=== PATIENT | male | born 1965 | race Caucasian/White ===

== ENCOUNTER 2016-11-27 06:05 | Day surgery (SDC) | payer OTHER ==
[~2016-11-27] VITALS: Ht 170.2 cm; Wt 81.6 kg
[~2016-11-27 06:05] MED LIST: ADVANCED E PO; ALLOPURINOL100 MG PO; AMLODIPINE5 MG PO; AMOXICILLIN500 MG PO; ASPIRIN EC81 MG PO; AUGMENTIN875TAB OR; AUGMENTIN875TAB PO; BACTRIM DS1 TAB OR; CHANTIX1 MG PO; CHLORTHALID25 MG PO; COREG25 MG PO; COREG3.125 MG PO; DILANTIN100 MG PO; FERRAPLUS 90 PO; FLEXERIL PO; FOLIC ACID1 MG PO; GABAPENTIN300 MG PO; GLIPIZIDE5 MG PO; GLYBURIDE5 MG PO; HYDROCHLOROT25 MG PO; LASIX 20 MG TAB20 MG PO; LIPITOR20 M1 PO; LIPITOR80 MG PO; LISINOPRIL20 MG PO; LORCET HD 10-321 TAB; LORTAB 10 PO; LORTAB 5 OR; MELOXICAM7.5 MG PO; METOPROL TAR25 MG PO; MOBIC7.5 M1 PO; NAPROSYN500 MG PO; NITROGLYCER0.4 MG SL; NITROSTAT0.4 MG SL; PLAVIX75 MG PO; SIMVASTATIN10 MG PO; SPIRIVA IN; TRAMADOL HCL50 MG PO; ULTRAM50 M1 PO
[2016-11-27 08:15] VITALS: BP 114/59
== END 2016-11-27 08:59 | disposition home or self-care (01) | DRG 552 ==
LOC: ORM 06:05
PROVIDERS: ATTEND Anesthesiology Pain Medicine
PROC: 3E0U3BZ Introduction of Anesthetic Agent into Joints, Percutaneous Approach (ICD-10-PCS; principal; 2016-11-27)
DX: M46.1 Sacroiliitis, not elsewhere classified (principal); M54.5 Low back pain

== ENCOUNTER 2016-12-11 06:23 | Day surgery (SDC) | payer OTHER ==
[~2016-12-11] VITALS: Ht 170.2 cm; Wt 79.4 kg
[2016-12-11] MEDS ORDERED: MULTI VIT PO (06:45)
[2016-12-24] MEDS ORDERED: NORCO1 TA2 PO ×2 (08:20→08:21)
== END 2016-12-11 07:05 | disposition home or self-care (01) | DRG 552 ==
LOC: ORM 06:23
PROVIDERS: ATTEND Anesthesiology Pain Medicine
DX: M46.1 Sacroiliitis, not elsewhere classified (principal); M54.5 Low back pain; Z53.8 Procedure and treatment not carried out for other reasons

== ENCOUNTER 2017-05-01 15:06 | Emergency (ER) | payer OTHER ==
[~2017-05-01] VITALS: Ht 170.2 cm; Wt 80.0 kg
[~2017-05-01 15:06] MED LIST changes: +MULTI VIT PO; +NORCO1 TA2 PO
[2017-05-01 16:23] VITALS: BP 126/75
== END 2017-05-01 16:28 | disposition home or self-care (01) | DRG 87 ==
LOC: ED 15:06
DX: S06.9X0A Unspecified intracranial injury without loss of consciousness, initial encounter (principal); R20.2 Paresthesia of skin; W17.89XA Other fall from one level to another, initial encounter; Y93.89 Activity, other specified; Y92.007 Garden or yard of unspecified non-institutional (private) residence as the place of occurrence of the external cause; Z79.02 Long term (current) use of antithrombotics/antiplatelets

== ENCOUNTER 2017-05-26 06:19 | Day surgery (SDC) | payer OTHER ==
[~2017-05-26 06:19] MED LIST changes: +FUROSEMIDE40 MG PO; +HYDROCHLOROT12.5 MG PO
[2017-05-26 09:02] VITALS: BP 136/67
== END 2017-05-26 09:10 | disposition home or self-care (01) | DRG 951 ==
LOC: ENDO 06:19
PROVIDERS: ATTEND Surgery
PROC: 0DBL8ZX Excision of Transverse Colon, Via Natural or Artificial Opening Endoscopic, Diagnostic (ICD-10-PCS; principal; 2017-05-26)
DX: Z12.11 Encounter for screening for malignant neoplasm of colon (principal); D12.3 Benign neoplasm of transverse colon

== ENCOUNTER 2018-07-12 21:40 | Emergency (ER) | payer OTHER ==
[~2018-07-12] VITALS: Ht 170.2 cm; Wt 79.0 kg
[2018-07-13] MEDS ORDERED: PERCOCET 5/325M1 TAB PO (00:46)
[2018-07-13 01:10] VITALS: BP 148/79
== END 2018-07-13 01:32 | disposition home or self-care (01) ==
LOC: ED 21:40
DX: R22.41 Localized swelling, mass and lump, right lower limb (principal)

== ENCOUNTER 2019-01-24 15:54 | Emergency (ER) | payer OTHER ==
[~2019-01-24] VITALS: Ht 170.2 cm; Wt 70.5 kg
[~2019-01-24 15:54] MED LIST changes: +PERCOCET 5/325M1 TAB PO
[2019-01-24 17:08] LABS: URINE BILIRUBIN - DIPSTICK NEGATIVE (NEGATIVE); URINE BLOOD DIPSTICK MODERATE (NEGATIVE); URINE GLUCOSE - DIPSTICK NEGATIVE (NEGATIVE); URINE KETONE NEGATIVE (NEGATIVE); URINE LEUK ESTERASE TRACE (NEGATIVE); URINE PH 6.5 (4.5-8.0); URINE PROTEIN - DIPSTICK 30 mg/dL (NEG-TRACE); URINE SPECIFIC GRAVITY 1.015; URINE UROBILINOGEN - DIPSTICK 0.2 E.U./dL (0.2)
[2019-01-24 17:09] LABS: URINE COLOR RED; URINE NITRITE - DIPSTICK POSITIVE (Negative)
[2019-01-24 17:11] LABS: URINE BACTERIA FEW hpf; URINE RBC TNTC RBC/hpf (0-5); URINE SQUAMOUS EPITHELIAL CELL FEW EPI/hpf (0-FEW)
[2019-01-24] MEDS ORDERED: KEFLEX500 M1 PO (17:38)
[2019-01-24 18:05] VITALS: BP 154/77
[2019-01-24] MEDS ORDERED: PYRIDIUM200 MG PO (18:05)
== END 2019-01-24 18:07 | disposition home or self-care (01) ==
LOC: ED 15:54
PROVIDERS: Emergency Medicine
DX: N39.0 Urinary tract infection, site not specified (principal); Z46.6 Encounter for fitting and adjustment of urinary device

== ENCOUNTER 2019-08-09 08:46 | Emergency (ER) | payer OTHER ==
[~2019-08-09 08:46] MED LIST changes: +KEFLEX500 M1 PO; +PYRIDIUM200 MG PO
[2019-08-09] MEDS ORDERED: CRESTOR5 MG PO (09:14)
[2019-08-09 09:32] LABS: HEMATOCRIT 40.3 % (39.0-50.0); HEMOGLOBIN 13.3 g/dl (14.0-18.0); IMMATURE GRANULOCYTES 0.3 % (0.0-5.0); MEAN CORPUSCULAR HGB 31.4 pG CALC (26.0-32.0); NEUT# 4.26 thou/uL (1.82-7.42); RED BLOOD COUNT 4.24 mill/uL (4.70-6.10); RED CELL DISTRI WIDTH 14.6 % (11.5-15.5)
[2019-08-09 09:52] LABS: ALBUMIN 4.4 g/dL (3.2-5.0); ALKALINE PHOSPHATASE 103 u/l (38-126); ANION GAP 18 (6-22 (CALC)); BILIRUBIN, TOTAL 0.4 mg/dL (0.0-1.4); BUN 34 mg/dL (9-20); CARBON DIOXIDE 21 mmol/l (22-30); CHLORIDE 103 mmol/l (95-108); POTASSIUM 4.7 mmol/l (3.5-5.1); SODIUM 137 mmol/l (137-146); TOTAL PROTEIN 7.9 g/dL (6.3-8.2)
[2019-08-09 09:54] LABS: BUN/CREATININE RATIO 23 (12-20 (CALC)); CREATININE 1.5 mg/dL (0.7-1.3); GFR 49 ML/MIN (>=60 (CALC)); GFR FOR AFR.AMER. 59 ML/MIN (>=60 (CALC)); SGOT/AST 40 u/l (17-59)
[2019-08-09] MEDS ORDERED: ALLOPURINOL100 MG PO (10:21)
[2019-08-09 12:15] VITALS: BP 137/61
== END 2019-08-09 12:19 | disposition left against medical advice (07) ==
LOC: ED 08:46
PROVIDERS: Family Medicine
DX: R00.1 Bradycardia, unspecified (principal); E11.9 Type 2 diabetes mellitus without complications; I10 Essential (primary) hypertension; Z79.84 Long term (current) use of oral hypoglycemic drugs; Z91.19 Patient's noncompliance with other medical treatment and regimen

== ENCOUNTER 2020-01-19 11:01 | Emergency (ER) | payer OTHER ==
[~2020-01-19] VITALS: Ht 170.2 cm; Wt 80.0 kg
[~2020-01-19 11:01] MED LIST changes: +CRESTOR5 MG PO
[2020-01-19] MEDS ORDERED: CEPHALEXIN500 M1 PO (12:26)
[2020-01-19] MEDS ORDERED: BACTRIM DS1 TAB PO (12:26)
[2020-01-19 12:44] VITALS: BP 137/56
== END 2020-01-19 12:40 | disposition left against medical advice (07) ==
LOC: ED 11:01
DX: L03.032 Cellulitis of left toe (principal); E11.9 Type 2 diabetes mellitus without complications; I10 Essential (primary) hypertension; F17.200 Nicotine dependence, unspecified, uncomplicated; B95.62 Methicillin resistant Staphylococcus aureus infection as the cause of diseases classified elsewhere; Z95.1 Presence of aortocoronary bypass graft; Z91.19 Patient's noncompliance with other medical treatment and regimen; Z20.828 Contact with and (suspected) exposure to other viral communicable diseases

== ENCOUNTER 2020-01-20 20:03 | Inpatient (IN) | payer OTHER ==
[~2020-01-20] VITALS: Ht 170.2 cm; Wt 80.0 kg
[~2020-01-20 20:03] MED LIST changes: +BACTRIM DS1 TAB PO; +CEPHALEXIN500 M1 PO
--- NOTE | 2020-01-20 20:10 | NUR ---
PT AMBULATES TO ROOM 12 W/STEADY GAIT.
--- NOTE | 2020-01-20 20:45 | NUR ---
IV STARTED. LABS DRAWN. LAB HERE TO COLLECT 2ND SET OF CULTURES.
--- NOTE | 2020-01-20 21:00 | NUR ---
PT TO CAR TO GET OVERNIGHT BAG. ESCORTED BY SECURITY.
[2020-01-20 21:09] LABS: HEMATOCRIT 32.9 % (39.0-50.0); HEMOGLOBIN 10.8 g/dl (14.0-18.0); IMMATURE GRANULOCYTES 0.5 % (0.0-5.0); MEAN CELL VOLUME 94.8 fL CALC (80.0-100.0); MEAN CORPUSCULAR HGB 31.1 pG CALC (26.0-32.0); MEAN CORPUSCULAR HGB CONC 32.8 g/dL CAL (32.0-36.0); NEUT# 6.01 thou/uL (1.82-7.42); RED BLOOD COUNT 3.47 mill/uL (4.70-6.10); RED CELL DISTRI WIDTH 14.5 % (11.5-15.5)
[2020-01-20 21:16] LABS: BILIRUBIN, TOTAL 0.4 mg/dL (0.0-1.4); CREATININE 2.1 mg/dL (0.7-1.3); POTASSIUM 4.5 mmol/l (3.5-5.1); TOTAL PROTEIN 7.4 g/dL (6.3-8.2)
--- NOTE | 2020-01-20 21:49 | NUR ---
PT RETURNED FROM U/S VIA W/C. U/S REPORTED NEGATIVE.
--- NOTE | 2020-01-20 21:55 | NUR ---
[facility] CALLS FOR BED ASSIGNMENT, ROOM 262 ASSIGNED FOR PT. ROOM 262 PREPARED BY Tan ARRIAGA CNA TO RECEIVE PT.
--- NOTE | 2020-01-20 23:05 | NUR ---
TELEPHONE REPORT RECEIVED FROM Fox ROMANO RN IN ED.
--- NOTE | 2020-01-20 23:06 | NUR ---
REPORT TO SUDEEP/MED-SURG.
--- NOTE | 2020-01-20 23:15 | NUR ---
TELEPHONE REPORT RECEIVED FROM Fox ROMANO RN IN ED.
--- NOTE | 2020-01-20 23:15 | NUR ---
PT TO FLOOR VIA W/C WITH IV INFUSING. MERRIMEN WITH PT. DRESSING REMAINS DRY AND INTACT. ARRANGED FOR WOUND CARE CONSULT. PT IS GOING TO CALL WOUND CARE IN THE AM TO ADVISE THAT HE IS IN HOSPITAL. VSS. PT AMBULATORY TO BED UPON ARRIVAL.
--- NOTE | 2020-01-20 23:15 | NUR ---
PT ARRIVES TO UNIT AT 2315 VIA WC ACCOMPANIED BY oFx ROMANO RN. PT AMBULATORY TO BED. ORIENTED TO UNIT AND ROOM. CALL VALDIVIA WITHIN REACH, AGREES TO CALL PRN.
--- NOTE | 2020-01-20 23:25 | NUR ---
RX SUGGEST MERREM 1GM IV Q12H FOR RENAL DOSING. ORDER CLARIFIED W/ Hazel VARGAS APRN.
--- NOTE | 2020-01-21 00:15 | NUR ---
ADMISSION AND PHYSICAL ASSESMENT COMPLETE. ERYTHEMA TO LLE OUTLINED WITH MARKER. DRESSING TO L GREAT TOE C/D/I. LEFT IN PLACE PENDING WOUND CARE DOCTORS CONSULTATION PER PTS WISHES. PRN ANALGESIC ADMINISTERED FOR PAIN. SEE E-MAR. PLAN OF CARE REVIEWED. PT VERBALIZES UNDERSTANDING AND DENIES QUESTIONS. PT DENIES FURTHER NEEDS AT THIS TIME. CALL VALDIVIA WITHIN REACH. AGREES TO CALL PRN.
[2020-01-21 03:57] VITALS: BP 113/58
--- NOTE | 2020-01-21 05:30 | NUR ---
REPORTED 0000 AND 0400 TO Hazel VARGAS APRN. NIBP @ 0000 WAS 85/67mm/Hg AND @ 0400 102/72mm/Hg. PT ASYMPTOMATIC FOR HYPOTENSION. REQUESTING CLARIFICATION ON WETHER OR NOT TO HOLD AM LASIX DOSE. PER Hazel VARGAS APRN ADMINISTER LASIX 40MG IV PREVIOUSLY ORDERED. SEE E-MAR FOR ADMINISTRATION.
[2020-01-21 05:40] LABS: HEMATOCRIT 31.6 % (39.0-50.0); HEMOGLOBIN 10.2 g/dl (14.0-18.0); IMMATURE GRANULOCYTES 0.4 % (0.0-5.0); MEAN CELL VOLUME 95.8 fL CALC (80.0-100.0); MEAN CORPUSCULAR HGB 30.9 pG CALC (26.0-32.0); MEAN CORPUSCULAR HGB CONC 32.3 g/dL CAL (32.0-36.0); NEUT# 4.15 thou/uL (1.82-7.42); RED BLOOD COUNT 3.3 mill/uL (4.70-6.10); RED CELL DISTRI WIDTH 14.4 % (11.5-15.5)
--- NOTE | 2020-01-21 05:53 | NUR ---
HEMODYNAMICS STABLE. PHYSICAL ASSESMENT REMAINS WITHIN BASELINE WITH NO SIGNIFICANT CHANGES. PT RESTING IN BED COMFORTABLY. DENIES ANY FURTHER NEEDS AT THIS TIME. CALL VALDIVIA WITHIN REACH, AGREES TO CALL PRN.
[2020-01-21 05:59] LABS: ALBUMIN 3.4 g/dL (3.2-5.0); BILIRUBIN, TOTAL 0.4 mg/dL (0.0-1.4); CREATININE 1.9 mg/dL (0.7-1.3); POTASSIUM 4.3 mmol/l (3.5-5.1); TOTAL PROTEIN 6.5 g/dL (6.3-8.2)
[2020-01-21 07:50] VITALS: BP 146/46
--- NOTE | 2020-01-21 07:50 | NUR ---
RECIEVED REPORT FROM ANATOLIY SHEETS. PT RESTING IN SEMI FOWLERS POSITION UPON ENTERING ROOM. INTRODUCED SELF TO PT AND DISCUSSED POC. PT IS A/O X3 AND ABLE TO VOICE NEEDS. ASSESSMENT AND VITALS OBTAINED. RESPIRATIONS ARE EVEN AND UNLABORE DON ROOM AIR. HEART RHYTHM IS NORMAL. BOWEL SOUNDS ARE ACTIVE IN ALL QUADRANTS, LAST REPORTED BM 01/21/2020. RADIAL PULSES STRONG. PEDAL PULSES WEAK. #20G IN RAC RUNNING WITH IV PER ORDER, SITE APPEARS HEALTHY AND PATENT. PT COMPLAINS OF 8/10 PAIN IN LEFT FOOT. LORTAB TO BE ADMINISTERED. DRESSING ON LEFT PINK TOE IS CDI AT THIS TIME. REDDNESS NOTED ON LEFT CALF, OUTLINE PRESENT. LIMB ELEVATED ON PILLOW. PT DENIES ANY OTHER PAIN OR DISCOMFORTS AT THIS TIME. PT COMPLAINS OF BEING COLD, HEATED BLANKET PROVIDED. PT EDUACTED ON NEED OF URINE SPECIMEN, PT VERBALIZED UNDERSTANDING. ALL SAFETY PRECAUTIONS ARE IN PLACE WITH CALL LIGHT IN REACH. WILL CONTINUE TO MONITOR
--- NOTE | 2020-01-21 08:20 | NUR ---
DR PAREKH AT BEDSIDE DISCUSSING POC
--- NOTE | 2020-01-21 10:02 | NUR ---
DR ELLIS AT BEDSIDE DISCUSSING POC WITH PT
--- NOTE | 2020-01-21 11:34 | NUR ---
S: SAUNDRA MONTEJO is a 54 M who presents with Cellulitis He has a history of Diabetes, CAD, Hypertension, and Hyperlipidemia. All medications in patient's chart were reviewed. O: VS: BP 146/46 mmHg, P 66 bpm, RR 18 breath per minute, T 96.3F W 80.0 kg, HT 67 in, Scr= 1.9 mg/dL, CrCl= 44 ml/min A: Blood culture is pending. 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 P: Patient is on Amoxicillin 875mg BID PO. Vancomycin ordered for pharmacy to dose. Start Vancomycin 1250mg IV Q24H. Vancomycin trough is drawn before the 4th dose on 01/24/2020 at 0830. Vancomycin goal trough is between 10-15 mcg/ml. Pharmacy will follow and or advise on antibiotics use as needed.
--- NOTE | 2020-01-21 12:37 | NUR ---
REASSESSMENT OF PAIN RESUTLING IN 06/17. RESPIRATIONS REMAINS EVEN AND UNLABORED WITH NO DISTRESS NOTED. DRESSING REMAINS CDI ON LEFT PINK TOE. PT DENIES ANY ADDITIONAL NEEDS AT THSI TIME. ALL SAFETY PRECAUTIONS ARE IN PLACE WIHT CALL LIGHT IN REACH. WILL CONTINUE TO MONITOR
[2020-01-21] MEDS ORDERED: ZYLOPRIM100 MG PO (13:34)
[2020-01-21] MEDS ORDERED: PROSCAR5 MG PO (13:35)
[2020-01-21] MEDS ORDERED: CRESTOR10 MG PO (13:36)
[2020-01-21] MEDS ORDERED: LOPRESSOR25 M1 PO (13:36)
[2020-01-21] MEDS ORDERED: BENICAR20 MG PO (13:37)
[2020-01-21] MEDS ORDERED: HYDROCODONE/ACE1 TAB PO (13:37)
[2020-01-21] MEDS ORDERED: HYDROCHLOROT12.5 M1 PO (13:39)
[2020-01-21] MEDS ORDERED: NEURONTIN300 MG PO (13:40)
[2020-01-21] MEDS ORDERED: GLIPIZIDE5 M2 PO (13:40)
[2020-01-21] MEDS ORDERED: UROCIT-K 101080 MG PO (13:42)
[2020-01-21] MEDS ORDERED: PROAIR HFA108 MCG/AC PO (13:44)
[2020-01-21] MEDS ORDERED: SPIRIVA HANDIH18 MCG PO (13:45)
[2020-01-21] MEDS ORDERED: PLAVIX75 MG PO (13:48)
--- NOTE | 2020-01-21 15:59 | NUR ---
WOUND CARE AT BEDSIDE
[2020-01-21 16:01] VITALS: BP 110/58
--- NOTE | 2020-01-21 16:14 | NUR ---
WRITTER IN ROOM WITH WOUND CARE. PT EXPRESSES FEELINGS ON" HOSPITAL NOT DOING ANYTHING FOR HIM.", STATING " IDONT UNDERSTAND WHY IM STILL IN THIS HOSPITAL BED WHEN I CAN BE JUST COME EVERY DAY TO GET THESE ANTIBIOTICS." WRIITER EXPLAINED THAT [facility] CONSULT AND WOUND CARE CONSULT WAS NEEDED. PT BECAME AGGITATED. WRITTER EXPLAINED THAT PT WOULD BE ABLE SPEAK TO MD ABOUTING DOING OUTPATIENT IN THE MORNING. PT SIGNED AND SHOOK HEAD. WRITTER ASKED IF ANYTHING WAS NEEDED AT THIS TIME. PT DENIES. ALL SAFTEY PRECAUTIONS ARE IN PLACE WITH CALL LIGHT IN REACH. WILL CONTINUE TO MONITOR.
[2020-01-21 19:30] VITALS: BP 160/80
--- NOTE | 2020-01-21 20:01 | NUR ---
PHYSICAL ASSESMENT COMPLETE. PT CURRENTLY DENIES PAIN OR DISCOMFORT. SCHEDULED MEDICATIONS AND PRN MEDICATION ADMINISTERED, SEE E-MAR. PT DENIES ANY NEEDS AT THIS TIME. PLAN OF CARE REVIEWED, PT DENIES QUESTIONS, VERBALIZES UNDERSTANDING. ITEMS WITHIN REACH, BED LOCKED IN LOW POSITION W/ BEDRAILS UP X2. CALL VALDIVIA WITHIN REACH, AGREES TO CALL PRN.
[2020-01-21 23:31] LABS: URINE BILIRUBIN - DIPSTICK NEGATIVE (NEGATIVE); URINE BLOOD DIPSTICK MODERATE (NEGATIVE); URINE COLOR YELLOW; URINE GLUCOSE - DIPSTICK NEGATIVE (NEGATIVE); URINE KETONE NEGATIVE (NEGATIVE); URINE NITRITE - DIPSTICK NEGATIVE (Negative); URINE PROTEIN - DIPSTICK NEGATIVE (NEG-TRACE); URINE UROBILINOGEN - DIPSTICK 0.2 E.U./dL (0.2)
[2020-01-21 23:52] LABS: URINE BACTERIA FEW hpf; URINE EPITHELIAL CELLS FEW EPI/hpf (0-FEW); URINE LEUK ESTERASE NEGATIVE (NEGATIVE)
--- NOTE | 2020-01-22 00:15 | NUR ---
PT LAYING IN BED WITH EYES CLOSED, APPEARS TO BE SLEEPING, APPEARS COMFORTABLE AND IN NO DISTRESS. RESPIRATIONS REGULAR AND UNLABORED. ITEMS REMAIN WITHIN REACH, CALL VALDIVIA REMAINS WITHIN REACH. BED REMAINS LOCKED AND IN LOW POSITION WITH BEDRAILS UP X2. WILL CONTINUE TO MONITOR.
[2020-01-22 04:00] VITALS: BP 106/65
--- NOTE | 2020-01-22 04:01 | NUR ---
PT RESTING IN BED, NO SIGNS OF DISTRESS NOTED, RESP EVEN AND UNLABORED. PT VOICES NO NEEDS OR COMPLAINTS AT THIS TIME. CALL LIGHT IN REACH, WILL CONTINUE TO MONITOR.
[2020-01-22 04:54] LABS: HEMATOCRIT 32.3 % (39.0-50.0); HEMOGLOBIN 10.5 g/dl (14.0-18.0); MEAN CELL VOLUME 93.9 fL CALC (80.0-100.0); MEAN CORPUSCULAR HGB 30.5 pG CALC (26.0-32.0); MEAN CORPUSCULAR HGB CONC 32.5 g/dL CAL (32.0-36.0); RED BLOOD COUNT 3.44 mill/uL (4.70-6.10); RED CELL DISTRI WIDTH 14.3 % (11.5-15.5)
[2020-01-22 05:06] LABS: ALBUMIN 3.3 g/dL (3.2-5.0); ALKALINE PHOSPHATASE 97 u/l (38-126); ANION GAP 9 (6-22 (CALC)); BILIRUBIN, TOTAL 0.4 mg/dL (0.0-1.4); BUN 32 mg/dL (9-20); BUN/CREATININE RATIO 24 (12-20 (CALC)); CARBON DIOXIDE 23 mmol/l (22-30); CHLORIDE 109 mmol/l (95-108); CREATININE 1.4 mg/dL (0.7-1.3); GFR 52 ML/MIN (>=60 (CALC)); GFR FOR AFR.AMER. > 60 ML/MIN (>=60 (CALC)); SGOT/AST 30 u/l (17-59); SODIUM 136 mmol/l (137-146); TOTAL PROTEIN 6.4 g/dL (6.3-8.2)
[2020-01-22 07:29] VITALS: BP 117/67
--- NOTE | 2020-01-22 07:29 | NUR ---
RECIEVED REPORT FROM ANATOLIY MOSLEY. PT RESTING IN SEMI FOWLERS POSITION UPON ENTERING ROOM. INTRODUCED SELF TO PT AND DISCUSSED POC. PT IS A/O X3. ASSESSMENT AND VITALS COMPLETED. RESPIRATIONS ARE EVEN AND UNLABORED ON ROOM AIR. HEART RHYTHM IS NORMAL. BOWEL SOUNDS AREA ACTIVE IN ALL QUADRANATS, LAST REPORETD BM 01/21/2020. RADIAL PULSES STRONG. PEDAL PULSES WEAK. DRESSING TO LEFT PINKY TOE CDI AT THIS TIME. PT COMPLAINS OF 3/10 PAIN IN TOE. DRESSING REMAINS CDI AT THIS TIME.PT DENIES ANY ADDITIONAL NEEDS AT THIS TIME. ALL FSAETY PRECAUTIONS ARE IN PLACE WIHT CALL LIGHT IN [facility]. WILL CONTINUE TO MONITOR
--- NOTE | 2020-01-22 10:02 | NUR ---
DR PAREKH AT BEDSIDE DISSCUSSING POC
--- NOTE | 2020-01-22 10:10 | NUR ---
US OF LOWER EXTERMITY ORDERED STAT. RADIOLOGY NOTFIED.
--- NOTE | 2020-01-22 12:38 | NUR ---
PT SLEEPING IN LOW FOWLERS POSITION. RESPIRATIONS ARE EVEN AND UNLABORED ON ROOM AIR. PT DENIES ANY NEEDS AT THIS TIME. WAITING FOR US. ALL SAFETY PRECAUTIONS ARE IN PLACE WITH CALL LIGHT IN REACH. WILL CONTINUE TO MONITOR
--- NOTE | 2020-01-22 13:00 | NUR ---
CALLED TO CHECK STATUS OF US. WRITTER INFORMS THAT [facility] WAS CALLED AND WILL BE CALLED AGAIN.
--- NOTE | 2020-01-22 13:26 | NUR ---
PT TRANSPORTED TO US VIA WHEELCHAIR IN STABLE CONDITION ACCOMPAINED BY MICHELLE
--- NOTE | 2020-01-22 15:34 | NUR ---
NOTIFIED OF US RESULTS. PT TO BE TRANSFER TO [facility]
--- NOTE | 2020-01-22 16:00 | NUR ---
PT RESTING IN SEMI FOWLERS POSITION UPON ENTERING ROOM. RESPIRATIONS ARE EVEN AND UNLABORED WITH NO SIGNS OF DISTRESS NOTED. PT EDUCATED ON TRANSFER. PT VERBALIZED UNDERSTANDING. PT DENIES ANY ADDITONAL NEEDS AT THIS TIME. ALL SAFETY PRECAUTIONS REMAIN IN PLACE. WILL CONTINUE TO MONITOR
[2020-01-22 16:06] VITALS: BP 144/79
--- NOTE | 2020-01-22 16:15 | NUR ---
BIOFIRE SWAB OBTAINED BY ANATOLIY LEE.
--- NOTE | 2020-01-22 16:29 | NUR ---
PT EDUCATED ON STATUS OF TRANSFER WITH CM AT BEDSIDE.PT STATED " YEAH I JUST FOUND OUT." [facility] ATTEMPTED TO REORIENT PATIENT ON DISCUSSION THIS MORNING WITH DR PAREKH. NO RESPONSE FROM PT. [facility] INFORMED PT THAT TRANSFER IS PENDING PER BIOFIRE SWAB, ONCE RESULTS CAME BACK TRANSPORTATION WOULD BE PROVIDED . PT STATED"I KNEW SOMETHING WAS UP WHEN YOU DID IT." [facility] ASKED PT TO CALIFY WHAT HE MEANT DUE TO COVID TEST REQURIED FROM [facility] FOR TRANSFER AND CM TO WORK ON TRANSPORTATION AND ROOM WHILE WAITIING FOR BIOFIRE. PT STATED " JUST UNHOOK ME, IM GOING HOME." [facility] EDUCATED PT ON MEDICAL CONDITION. DR PAREKH CALLED TO PT ROOM. PT REFUSED TO SPEAK TO MD. PT CONTINUE TO WALK OUT. IV REMOVED BY ALEXA SOLIS. PT REFUSED TO SIGNS AMA FORMS. DR PAREKH NOTIFIED.
--- NOTE | 2020-01-22 16:42 | NUR ---
PT WALKING DOWN HALLWAY DRESSED HIM HOME CLOTHES AND ALL BELONGINGS IN HAND; PT ADAMENT THAT HE IS LEAVING AND NOT GOING TO [facility]; ATTEMPTED TO INFORM PT OF RISKS OF LEAVING AND PT IS AGITATED AND DISINTRESTED IN EXPLANATIONS. CONTINUES TO WALK TOWARDS ELEVATORS; INSISTED THAT PT LET STAFF REMOVE IV; IV REMOVED IN HALLWAY. ALSO REFUSED TO SIGN AMA PAPER.
== END 2020-01-22 16:29 | disposition left against medical advice (07) | DRG 638 ==
LOC: ED 20:03 → ED-I 21:41 → ED 21:53 → MS2 21:54
PROVIDERS: Emergency Medicine; Nurse Practitioner Family; ADMIT Internal Medicine; ATTEND Internal Medicine
DX: E11.69 Type 2 diabetes mellitus with other specified complication (principal); M86.8X7 Other osteomyelitis, ankle and foot; L03.116 Cellulitis of left lower limb; N17.9 Acute kidney failure, unspecified; E11.621 Type 2 diabetes mellitus with foot ulcer; L97.529 Non-pressure chronic ulcer of other part of left foot with unspecified severity; E11.51 Type 2 diabetes mellitus with diabetic peripheral angiopathy without gangrene; I70.245 Atherosclerosis of native arteries of left leg with ulceration of other part of foot; I70.201 Unspecified atherosclerosis of native arteries of extremities, right leg; I12.9 Hypertensive chronic kidney disease with stage 1 through stage 4 chronic kidney disease, or unspecified chronic kidney disease; E11.22 Type 2 diabetes mellitus with diabetic chronic kidney disease; I72.4 Aneurysm of artery of lower extremity; E11.65 Type 2 diabetes mellitus with hyperglycemia; N18.9 Chronic kidney disease, unspecified; S92.512A Displaced fracture of proximal phalanx of left lesser toe(s), initial encounter for closed fracture; X58.XXXA Exposure to other specified factors, initial encounter; F17.210 Nicotine dependence, cigarettes, uncomplicated; I25.10 Atherosclerotic heart disease of native coronary artery without angina pectoris; F41.9 Anxiety disorder, unspecified; E78.5 Hyperlipidemia, unspecified; B95.62 Methicillin resistant Staphylococcus aureus infection as the cause of diseases classified elsewhere; Z79.84 Long term (current) use of oral hypoglycemic drugs; Z95.1 Presence of aortocoronary bypass graft; Z20.828 Contact with and (suspected) exposure to other viral communicable diseases
CPT/HCPCS: J0692; J3370

== ENCOUNTER 2020-06-26 | Emergency (ER) | payer OTHER ==
[~2020-06-26] MED LIST changes: +BENICAR20 MG PO; +CRESTOR10 MG PO; +GLIPIZIDE5 M2 PO; +HYDROCHLOROT12.5 M1 PO; +HYDROCODONE/ACE1 TAB PO; +LOPRESSOR25 M1 PO; +NEURONTIN300 MG PO; +PROAIR HFA108 MCG/AC PO; +PROSCAR5 MG PO; +SPIRIVA HANDIH18 MCG PO; +UROCIT-K 101080 MG PO; +ZYLOPRIM100 MG PO
[2020-06-26] MEDS ORDERED: KEFLEX500 M1 PO (17:59)
== END 2020-06-26 18:42 | disposition home or self-care (01) ==
DX: L03.115 Cellulitis of right lower limb (principal); I10 Essential (primary) hypertension; E11.9 Type 2 diabetes mellitus without complications; F17.200 Nicotine dependence, unspecified, uncomplicated; Z79.84 Long term (current) use of oral hypoglycemic drugs; Z95.1 Presence of aortocoronary bypass graft

== ENCOUNTER 2020-06-30 | Emergency (ER) | payer OTHER ==
[2020-06-30 12:46] LABS: HEMOGLOBIN 11.8 g/dl (14.0-18.0); IMMATURE GRANULOCYTES 0.2 % (0.0-5.0); MEAN CELL VOLUME 95.5 fL CALC (80.0-100.0); MEAN CORPUSCULAR HGB 31.3 pG CALC (26.0-32.0); MEAN CORPUSCULAR HGB CONC 32.8 g/dL CAL (32.0-36.0); NEUT# 2.9 thou/uL (1.82-7.42); RED BLOOD COUNT 3.77 mill/uL (4.70-6.10); RED CELL DISTRI WIDTH 14.4 % (11.5-15.5)
[2020-06-30 13:08] LABS: ACT PARTIAL THROMBO TIME 24.5 SECONDS (20.0-32.5); PROTHROMBIN TIME 10.3 SECONDS (9.0-12.5)
[2020-06-30 13:31] LABS: ALBUMIN 4.2 g/dL (3.2-5.0); ALKALINE PHOSPHATASE 83 u/l (38-126); ANION GAP 11 (6-22 (CALC)); BILIRUBIN, TOTAL 0.5 mg/dL (0.0-1.4); BUN 31 mg/dL (9-20); BUN/CREATININE RATIO 22 (12-20 (CALC)); CARBON DIOXIDE 25 mmol/l (22-30); CHLORIDE 101 mmol/l (95-108); CREATININE 1.4 mg/dL (0.7-1.3); GFR 52 ML/MIN (>=60 (CALC)); GFR FOR AFR.AMER. > 60 ML/MIN (>=60 (CALC)); POTASSIUM 4.4 mmol/l (3.5-5.1); SGOT/AST 43 u/l (17-59); SODIUM 132 mmol/l (137-146); TOTAL PROTEIN 7.4 g/dL (6.3-8.2)
[2020-06-30] MEDS ORDERED: CLINDAMYCIN300 M1 PO (13:52)
== END 2020-06-30 14:18 | disposition home or self-care (01) ==
DX: L03.115 Cellulitis of right lower limb (principal); S80.811A Abrasion, right lower leg, initial encounter; L55.9 Sunburn, unspecified; E11.9 Type 2 diabetes mellitus without complications; I10 Essential (primary) hypertension; I25.10 Atherosclerotic heart disease of native coronary artery without angina pectoris; F17.210 Nicotine dependence, cigarettes, uncomplicated; X58.XXXA Exposure to other specified factors, initial encounter; Z95.1 Presence of aortocoronary bypass graft; Z79.84 Long term (current) use of oral hypoglycemic drugs

== ENCOUNTER 2020-09-10 15:13 | Emergency (ER) | payer OTHER ==
[~2020-09-10] VITALS: Ht 170.2 cm; Wt 84.1 kg
[~2020-09-10 15:13] MED LIST changes: +CLINDAMYCIN300 M1 PO
[2020-09-10 15:38] LABS: HEMOGLOBIN 13.9 g/dl (14.0-18.0); IMMATURE GRANULOCYTES 0.1 % (0.0-5.0); MEAN CELL VOLUME 91.3 fL CALC (80.0-100.0); MEAN CORPUSCULAR HGB 31.7 pG CALC (26.0-32.0); MEAN CORPUSCULAR HGB CONC 34.8 g/dL CAL (32.0-36.0); NEUT# 5.42 thou/uL (1.82-7.42); RED BLOOD COUNT 4.38 mill/uL (4.70-6.10); RED CELL DISTRI WIDTH 13.8 % (11.5-15.5)
[2020-09-10 15:54] LABS: ALBUMIN 4.8 g/dL (3.2-5.0); BILIRUBIN, TOTAL 0.5 mg/dL (0.0-1.4); CREATININE 2.3 mg/dL (0.7-1.3)
[2020-09-10 15:57] LABS: POTASSIUM 2.7 mmol/l (3.5-5.1)
[2020-09-10 16:03] LABS: ACT PARTIAL THROMBO TIME 26.5 SECONDS (20.0-32.5); INTERNATIONAL NORMALIZED RATIO 1.1 RATIO (0.7-1.3); PROTHROMBIN TIME 11.2 SECONDS (9.0-12.5)
[2020-09-10] MEDS ORDERED: XARELTO2.5 MG (17:48)
[2020-09-10 17:54] VITALS: BP 123/64
== END 2020-09-10 18:05 | disposition left against medical advice (07) ==
LOC: ED 15:13
DX: R07.9 Chest pain, unspecified (principal); E87.6 Hypokalemia; I12.9 Hypertensive chronic kidney disease with stage 1 through stage 4 chronic kidney disease, or unspecified chronic kidney disease; E11.22 Type 2 diabetes mellitus with diabetic chronic kidney disease; N18.9 Chronic kidney disease, unspecified; I25.10 Atherosclerotic heart disease of native coronary artery without angina pectoris; I25.2 Old myocardial infarction; F17.200 Nicotine dependence, unspecified, uncomplicated; Z95.1 Presence of aortocoronary bypass graft; Z95.5 Presence of coronary angioplasty implant and graft; Z79.84 Long term (current) use of oral hypoglycemic drugs; Z91.19 Patient's noncompliance with other medical treatment and regimen
CPT/HCPCS: S0164

== ENCOUNTER 2021-11-15 07:12 | Day surgery (SDC) | payer OTHER ==
[~2021-11-15] VITALS: Ht 170.2 cm; Wt 79.4 kg
[~2021-11-15 07:12] MED LIST changes: +LEVOTHYROXIN75 MC1 PO; +XARELTO2.5 MG
[2021-11-15 08:58] VITALS: BP 152/64
== END 2021-11-15 09:38 | disposition home or self-care (01) ==
LOC: ENDO 07:12 → ORM 08:00 → ENDO 09:38
PROVIDERS: ATTEND Surgery
DX: D12.3 Benign neoplasm of transverse colon (principal); K63.5 Polyp of colon; K64.8 Other hemorrhoids; I10 Essential (primary) hypertension; E11.9 Type 2 diabetes mellitus without complications; F17.210 Nicotine dependence, cigarettes, uncomplicated; Z95.1 Presence of aortocoronary bypass graft; Z79.84 Long term (current) use of oral hypoglycemic drugs; Z86.010 Personal history of colon polyps

== ENCOUNTER 2023-11-02 11:18 | Emergency (ER) | payer OTHER ==
[2023-11-02] VITALS (13 sets, daily range): BP systolic 117–156; BP diastolic 45–127
[~2023-11-02] VITALS: Ht 157.5 cm; Wt 80.0 kg
[~2023-11-02 11:18] MED LIST changes: +TOPROL XL25 M1 PO
[2023-11-02] MEDS ORDERED: VANCOMYCIN HCL 1 GM in SODIUM CHLORIDE 0.9% 250 ML IV ONE (11:50)
[2023-11-02] MEDS ORDERED: PIPERACILLIN Sodium-Tazobactam 3.375 GM in SODIUM CHLORIDE 0.9% 100 ML IV ONE (11:50)
[2023-11-02 12:25] LABS: BASO% 0.1 % (0-3); EOS% 0.4 % (0-8); HEMOGLOBIN 9.4 g/dl (14.0-18.0); IMMATURE GRANULOCYTES 0.2 % (0.0-5.0); LYMPH% 9.5 % (15-41); MEAN CELL VOLUME 98.6 fL CALC (80.0-100.0); MEAN CORPUSCULAR HGB CONC 32.4 g/dL CAL (32.0-36.0); MONO% 8.9 % (2-13); NEUT# 6.7 thou/uL (1.82-7.42); NEUT% 80.9 % (42-76); RED BLOOD COUNT 2.94 mill/uL (4.70-6.10); RED CELL DISTRI WIDTH 16.6 % (11.5-15.5)
[2023-11-02 12:36] LABS: BILIRUBIN, TOTAL 0.4 mg/dL (0.2-1.3); CREATININE 3.6 mg/dL (0.7-1.3); POTASSIUM 3.5 mmol/l (3.5-5.1); TOTAL PROTEIN 7.4 g/dL (6.3-8.2)
== END 2023-11-02 15:50 | disposition left against medical advice (07) ==
LOC: ED 11:18
PROVIDERS: Family Medicine
DX: E11.69 Type 2 diabetes mellitus with other specified complication (principal); M86.8X7 Other osteomyelitis, ankle and foot; I10 Essential (primary) hypertension; E11.51 Type 2 diabetes mellitus with diabetic peripheral angiopathy without gangrene; I25.10 Atherosclerotic heart disease of native coronary artery without angina pectoris; J44.9 Chronic obstructive pulmonary disease, unspecified; I25.2 Old myocardial infarction; F17.200 Nicotine dependence, unspecified, uncomplicated; Z95.1 Presence of aortocoronary bypass graft; Z79.84 Long term (current) use of oral hypoglycemic drugs; Z53.29 Procedure and treatment not carried out because of patient's decision for other reasons

== ENCOUNTER 2024-02-23 09:38 | Emergency (ER) | payer OTHER ==
[2024-02-23] VITALS (11 sets, daily range): BP systolic 91–177; BP diastolic 48–75
[~2024-02-23] VITALS: Ht 170.2 cm; Wt 74.2 kg
[2024-02-23 10:32] LABS: BASO% 0.7 % (0-3); EOS% 3.7 % (0-8); LYMPH% 23.9 % (15-41); MEAN CELL VOLUME 100.8 fL CALC (80.0-100.0); MEAN CORPUSCULAR HGB 31.6 pG CALC (26.0-32.0); MEAN CORPUSCULAR HGB CONC 31.4 g/dL CAL (32.0-36.0); MONO% 8.4 % (2-13); NEUT# 3.6 thou/uL (1.82-7.42); NEUT% 63.3 % (42-76); RED BLOOD COUNT 3.67 mill/uL (4.70-6.10); RED CELL DISTRI WIDTH 14.5 % (11.5-15.5)
[2024-02-23 10:37] LABS: HEMOGLOBIN 11.6 g/dl (14.0-18.0)
[2024-02-23 10:38] LABS: BILIRUBIN, TOTAL 0.5 mg/dL (0.2-1.3); CHOLESTEROL HDL RATIO 2.4 (<4.4 (CALC)); POTASSIUM 3.8 mmol/l (3.5-5.1)
[2024-02-23 10:42] LABS: ALBUMIN 4.9 g/dL (3.2-5.0); CREATININE 3.3 mg/dL (0.7-1.3); TOTAL PROTEIN 8.6 g/dL (6.3-8.2)
[2024-02-23 10:46] LABS: PROTHROMBIN TIME 10.9 SECONDS (9.0-12.5)
[2024-02-23] MEDS ORDERED: DEXAMETHASONE SOD. PHOSPHATE 10 MG/ML VIAL IV ONE (11:05)
== END 2024-02-23 12:34 | disposition short-term general hospital (02) ==
LOC: ED 09:38
PROVIDERS: Family Medicine
DX: G93.9 Disorder of brain, unspecified (principal); G93.6 Cerebral edema; E11.22 Type 2 diabetes mellitus with diabetic chronic kidney disease; I12.9 Hypertensive chronic kidney disease with stage 1 through stage 4 chronic kidney disease, or unspecified chronic kidney disease; N18.9 Chronic kidney disease, unspecified; I25.10 Atherosclerotic heart disease of native coronary artery without angina pectoris; E11.51 Type 2 diabetes mellitus with diabetic peripheral angiopathy without gangrene; J44.9 Chronic obstructive pulmonary disease, unspecified; I25.2 Old myocardial infarction; F17.200 Nicotine dependence, unspecified, uncomplicated; Z95.1 Presence of aortocoronary bypass graft; Z95.5 Presence of coronary angioplasty implant and graft
CPT/HCPCS: J1100; J1953